=== PATIENT | female | born 1980 | race Caucasian/White ===

== ENCOUNTER → 2016-06-21 | Outpatient (CLI) | payer BC ==
[~2016-06-21] MED LIST: ACET-1311 PO; MTR600X PO; OXYC-57 PO; PRENTAB26 PO
--- NOTE | 2016-06-22 13:55 | DIAGNOSTIC IMAGING REPORT ---
RIGHT FOOT 4 VIEWS HISTORY: RIGHT FOOT PAIN Right COMPARISON: None. FINDINGS: Focal bony protrusion along the medial aspect of the navicular bone with subtle areas of linear lucency. 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 There is mild soft tissue swelling at this location. The Lisfranc joint is intact. No dislocation.. No radiopaque foreign bodies. IMPRESSION: Focal bony protrusion at the medial aspect of the navicular bone with subtle areas of linear lucency. This favors a partially fused accessory ossicle. However, a subtle nondisplaced fracture could also have a similar appearance in the appropriate clinical setting but is considered less likely. If the patient is complaining of persistent pain at this location then consider dedicated right foot MRI or CT for further evaluation. Electronically signed by: Dandre Tellez M.D. 06/22/2016 1:53 PM Dictated Date/Time: 06/22/2016 1:40 PM
== END | disposition home or self-care (01) ==
LOC: C.RDSM 15:29
PROVIDERS: ATTEND Internal Medicine
DX: M79.671 Pain in right foot (principal)

== ENCOUNTER → 2017-06-23 | Outpatient (CLI) | payer BC ==
[2017-06-23 12:34] LABS: BASO % 0.4 %; BASO ABS # 0.02 K/uL (0-0.2); EOS % 0.4 %; EOS ABS # 0.02 K/uL (0-0.5); HEMATOCRIT 35.6 % (37-47); HEMOGLOBIN 11.4 g/dL (12.0-16.0); IG# 0.02 K/uL (0.00-0.02); LYMPH % 24.9 %; LYMPH ABS # 1.29 K/uL (1.2-3.4); MEAN CELL VOLUME 81.7 fL (80-100); MEAN CORPUSCULAR HEMOGLOBIN 26.1 pg (25-34); MEAN PLATELET VOLUME 8.8 fL (7.4-10.4); MONO % 7.7 %; NEUT % 66.2 %; NEUT ABS # 3.44 K/uL (1.4-6.5); PLATELET COUNT 230 K/uL (130-400); RED CELL DISTRIBUTION WIDTH CV 15.9 % (11.5-14.5); RED CELL DISTRIBUTION WIDTH SD 48.1 fL (36.4-46.3); WHITE BLOOD COUNT 5.19 K/uL (4.8-10.8)
[2017-06-23 13:33] LABS: ALBUMIN 3.7 gm/dl (3.4-5.0); ALT/SGPT 26 U/L (12-78); AST/SGOT 21 U/L (15-37); BLOOD UREA NITROGEN 8 mg/dl (7-18); CALCIUM 8.4 mg/dl (8.5-10.1); CARBON DIOXIDE 28 mmol/L (21-32); GLUCOSE 86 mg/dl (70-99); POTASSIUM 3.9 mmol/L (3.5-5.1); SODIUM 137 mmol/L (136-145)
[2017-06-23 13:43] LABS: ALKALINE PHOSPHATASE 71 U/L (45-117); TOTAL PROTEIN 7.8 gm/dl (6.4-8.2)
== END | disposition home or self-care (01) ==
LOC: C.LABPVFM 10:28
PROVIDERS: ATTEND Nurse Practitioner Family
DX: G43.909 Migraine, unspecified, not intractable, without status migrainosus (principal); R53.83 Other fatigue; F41.8 Other specified anxiety disorders